=== PATIENT | male | born 1990 | race African-American/Black ===

== ENCOUNTER → 2017-01-30 | Outpatient (CLI) | payer OTHER ==
[~2017-01-30] MED LIST: ALLERGY MEDICINE; BACTRIM DS TAB1 EACH PO; CLEOCIN HCL300 MG PO; DARVOCET-N 1001 EACH PO; NASONEX17 GM
--- NOTE | ~2017-01-30 | PFR/MVV ---
[facility] [place] [address] PULMONARY FUNCTION MVV/REPORT Name: ALIZA ZALDIVAR [id number] Admission: 01/30/17 Attend Phys: Kai Goldman MD Discharge: Date of : 89 Report #: [id number] THIS REPORT FOR: //name// COPIES FOR: AGE: 26 SEX/RACE: M/B >> SPIROMETRY: (BTPS) Height: 70.0 in cm Weight: 264 lbs kg Exam Date: 01/30/17 PRE-RX POST-RX PRED BEST %PRED BEST %PRED %CHG FVC LITERS . 5.25 . 4.75 . 90 . 4.87 . 93 . 3 FEV1 LITERS . 4.46 . 3.27 . 73 . 3.55 . 79 . 8 FEV1/FVC % . 85 . 69 . 81 . 73 . 86 . 6 [id number]% L/Sec . 5.19 . 2.20 . 42 . 2.60 . 50 . 18 PEF L/SEC . 9.78 . 6.82 . 70 . 8.16 . 83 . 20 FEF50/FIF50 UNITLESS . <1.00 . 1.00 . . 0.70 . . -30 MVV L/Min . 186 . 134 . 72 f 1/Min . . 105 . >> LUNG VOLUMES: (BTPS) PRE-RX POST-RX PRED AVG %PRED AVG %PRED %CHG VC Liters . 5.25 . 4.75 . 90 . . . TLC Liters . 7.20 . 6.38 . 89 . . . RV Liters . 1.76 . 1.63 . 92 . . . RV/TLC % . 25 . 26 . 102 . . . FRC PL Liters . 3.10 . 2.38 . 77 . . . FRC N2 Liters . 3.10 . . . . . ERV Liters . . 0.75 . . . . IC Liters . . 3.35 . . . . >> DIFFUSION: DLCO ml/Min/mmHg . 37.5 . 25.5 . 68 . . . DL Christine ml/Min/mmHg . 37.5 . 25.5 . 68 . . . DLCO/VA ml/Min/mmHg . 4.70 . 4.87 . 104 . . . VA Liters . . 5.24 . . . . [facility] [address] [place] [address] PULMONARY FUNCTION MVV/REPORT Name: ALIZA ZALDIVAR Room #: [facility]#: [id number] Admission: 01/30/17 Attend Phys: Kai Goldman MD Discharge: Date of : 89 Report #: [id number] COMMENTS: COMMENTS: >> RESISTANCE: PRE-RX PRED AVG %PRED Raw Total cmH20/L/Sec . . 5.40 . Raw Insp cmH20/L/Sec . . 4.37 . Raw Exp cmH20/L/Sec . . 4.89 . Raw cmH20/L/Sec . 1.51 . 2.58 . 171 Gaw L/Sec/cmH20 . 0.744 . 0.387 . 52 sRaw cmH20 Sec . 4.67 . 7.81 . 167 sGaw l/cmH20 Sec . 0.214 . 0.128 . 60 Vtq Liters . . 3.02 . # = OUTSIDE 95% CONFIDENCE INTERVAL CALIBRATION: PRED: 3.00 ACTUAL: EXP 3.01 INSP 3.02 [facility]-OL10-06 [facility]-05 N-1804-4 >> INTERPRETATION/IMPRESSION: CC: Kai Goldman MD Spirometric examination revealed mild obstructive ventilatory defect. There was significant bronchodilator response. Lung volumes are normal. Diffusion capacity is normal. Flow volume loop is normal. IMPRESSION: 1. Mild obstructive ventilatory defect. 2. Reversible airway. Clinical correlation is suggested. <ELECTRONICALLY SIGNED> By: Jimi Perez MD 02/14/17 1556 Jimi Perez MD /nt
== END ==
LOC: PUL 09:42
DX: R06.00 Dyspnea, unspecified (principal)

== ENCOUNTER 2017-07-25 09:28 | Emergency (ER) | payer OTHER ==
[~2017-07-25] VITALS: Ht 180.3 cm; Wt 122.5 kg
[2017-07-25 09:32] VITALS: BP 142/71
[2017-07-25 10:42] LABS: ABSOLUTE NEUTROPHILS 6.2 thou/uL (1.4-8.2); BASOPHILS 0.9 % (0.0-2.0); EOSINOPHILS 2.7 % (0.0-3.0); HEMATOCRIT 40.3 % (42.0-52.0); HEMOGLOBIN 13.2 gm/dL (14.0-18.0); LYMPHOCYTES 23.7 % (24.0-44.0); MANUAL DIFF NO; MCH 25.6 pg (26.0-34.0); MCHC 32.9 g/dL (28.0-37.0); MCV 77.8 fL (80.0-100.0); MONOCYTES 9.1 % (1.0-8.0); PLATELET COUNT 203 thou/uL (150-400); POLYS 63.6 % (36.0-66.0); RBC 5.17 mil/uL (4.50-6.00); RDW 13.7 % (10.5-14.5); WBC 9.7 thou/uL (4.0-11.0)
[2017-07-25 10:52] LABS: CALCIUM 9.7 mg/dL (8.5-10.1); POTASSIUM 4.3 mmol/L (3.5-5.1)
== END 2017-07-25 11:41 | disposition home or self-care (01) ==
LOC: ER 09:28
PROVIDERS: Physician Assistant
DX: R51 Headache (principal); Z88.1 Allergy status to other antibiotic agents